=== PATIENT | male | born 1960 | race African-American/Black ===

== ENCOUNTER 2016-07-04 20:07 | Emergency (ER) | payer OTHER ==
[~2016-07-04] VITALS: Ht 182.9 cm; Wt 81.6 kg
[2016-07-05 05:34] VITALS: BP 115/78
== END 2016-07-05 05:35 | disposition home or self-care (01) ==
LOC: ER 20:13
DX: S00.83XA Contusion of other part of head, initial encounter (principal); F10.129 Alcohol abuse with intoxication, unspecified; X58.XXXA Exposure to other specified factors, initial encounter; Y93.89 Activity, other specified; Y92.89 Other specified places as the place of occurrence of the external cause; Y99.8 Other external cause status
CPT/HCPCS: 70450; 72125; 82962; 99284; A4606; L0172; Z7610

== ENCOUNTER 2016-07-21 22:47 | Emergency (ER) | payer OTHER ==
[~2016-07-21] VITALS: Ht 182.9 cm; Wt 81.6 kg
[2016-07-22 02:00] VITALS: BP 127/86
== END 2016-07-22 03:58 | disposition home or self-care (01) ==
LOC: ER 22:48
DX: M25.511 Pain in right shoulder (principal); G80.9 Cerebral palsy, unspecified
CPT/HCPCS: 73010-TC; A4606; Z7610

== ENCOUNTER 2016-08-13 15:21 | Emergency (ER) | payer OTHER ==
[~2016-08-13] VITALS: Ht 188 cm; Wt 90.7 kg
[2016-08-13] MEDS ORDERED: ACETAMINOPHEN ES 500 MG TABLET PO ONE (16:00)
[2016-08-13] MEDS ORDERED: ACETAMINOPHEN ES 500 MG TABLET ONE (16:05)
[2016-08-13 16:19] VITALS: BP 126/71
== END 2016-08-13 17:31 | disposition home or self-care (01) ==
LOC: ER 15:22
DX: J06.9 Acute upper respiratory infection, unspecified (principal); G80.9 Cerebral palsy, unspecified
CPT/HCPCS: 71010; 99283; A4606; Z7610

== ENCOUNTER 2016-10-11 13:57 | Emergency (ER) | payer OTHER ==
[~2016-10-11] VITALS: Ht 182.9 cm; Wt 63.5 kg
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
[2016-10-11] MEDS ORDERED: HYDROCODONE/APAP 5/325MG 1 EACH TABLET ONE (14:36)
[2016-10-11] MEDS ORDERED: ONDANSETRON 4 MG TAB.RAPDIS ONE (14:36)
--- NOTE | 2016-10-11 14:42 | NUR ---
PT TRANSPORTED TO RADIOLOGY IN STABLE CONDITION
[2016-10-11] MEDS ORDERED: HYDROCODONE/APAP 5/325MG 1 EACH TABLET PO ONE (15:00)
[2016-10-11] MEDS ORDERED: ONDANSETRON 4 MG TAB.RAPDIS PO ONE (15:00)
--- NOTE | 2016-10-11 16:15 | NUR ---
Patient discharged to home in stable condition. Written and verbal after care instructions given. Patient verbalizes understanding of instruction. AMBULATORY WITH WALKER; ASSISTED BY WHEELCHAIR TO CAR PER PT REQUEST.
[2016-10-11 16:16] VITALS: BP 132/75
== END 2016-10-11 16:17 | disposition home or self-care (01) ==
LOC: EDUNIT# 13:57 → ER 13:59
DX: M79.1 Myalgia (principal); I10 Essential (primary) hypertension; F17.200 Nicotine dependence, unspecified, uncomplicated; Z86.73 Personal history of transient ischemic attack (TIA), and cerebral infarction without residual deficits; Z98.890 Other specified postprocedural states
CPT/HCPCS: 72074-TC; 72100-TC; 72125-TC; 73030-TC; 73060-TC; 73550-TC; A4606; Q0162; Z7610

== ENCOUNTER 2016-10-22 16:10 | Emergency (ER) | payer OTHER ==
[~2016-10-22] VITALS: Ht 172.7 cm; Wt 74.8 kg
[2016-10-22 16:12] VITALS: BP 143/82
== END 2016-10-22 18:57 | disposition home or self-care (01) ==
LOC: ER 16:11
DX: F10.129 Alcohol abuse with intoxication, unspecified (principal); F19.10 Other psychoactive substance abuse, uncomplicated; G80.9 Cerebral palsy, unspecified; I10 Essential (primary) hypertension
CPT/HCPCS: A4606; Z7610

== ENCOUNTER 2017-12-23 04:33 | Emergency (ER) | payer OTHER ==
[~2017-12-23] VITALS: Ht 170.2 cm; Wt 65.8 kg
[2017-12-23 04:35] VITALS: BP 163/93
[2017-12-23] MEDS ORDERED: IBUPROFEN 600 MG TABLET PO ONE ×2 (04:59→05:00)
== END 2017-12-23 05:14 | disposition home or self-care (01) ==
LOC: ER 04:35
DX: M79.671 Pain in right foot (principal); M79.672 Pain in left foot; G80.9 Cerebral palsy, unspecified; I10 Essential (primary) hypertension; Z98.890 Other specified postprocedural states; F17.200 Nicotine dependence, unspecified, uncomplicated; F10.10 Alcohol abuse, uncomplicated; Y90.9 Presence of alcohol in blood, level not specified
CPT/HCPCS: 99282; A4606; Z7610

== ENCOUNTER → 2018-02-18 | Emergency (ER) | payer OTHER ==
[~2018-02-18] VITALS: Ht 182.9 cm; Wt 65.3 kg
[~2018-02-18] MED LIST: oxyCODONE/APAP (5/325 MG) 1 UDTAB TABLET ONE; oxyCODONE/APAP (5/325 MG) 1 UDTAB TABLET PO ONE
[2018-02-18 17:20] VITALS: BP 103/61
--- NOTE | 2018-02-18 21:38 | NUR ---
PT NEEDS A VOLAR SPLINT
== END | disposition home or self-care (01) ==
LOC: ER 17:21
DX: S62.305A Unspecified fracture of fourth metacarpal bone, left hand, initial encounter for closed fracture (principal); I10 Essential (primary) hypertension; G80.9 Cerebral palsy, unspecified; R53.1 Weakness; F10.10 Alcohol abuse, uncomplicated; F17.200 Nicotine dependence, unspecified, uncomplicated; Y90.9 Presence of alcohol in blood, level not specified; Z98.890 Other specified postprocedural states; Z59.0 Homelessness; Y04.0XXA Assault by unarmed brawl or fight, initial encounter; Y93.89 Activity, other specified; Y92.89 Other specified places as the place of occurrence of the external cause; Y99.8 Other external cause status
CPT/HCPCS: 29125; 72110; 72220; 73130; 99284; 99406; A4606; Z7610

== ENCOUNTER 2018-08-20 21:24 | Emergency (ER) | payer OTHER ==
--- NOTE | 2018-08-20 21:30 | NUR ---
CALLED, NO ANSWER IN WR.
--- NOTE | 2018-08-20 22:41 | NUR ---
CALLED IN [facility], NO ANSWER.
--- NOTE | 2018-08-20 23:22 | NUR ---
CALLED IN [facility], NO ANSWER.
== END 2018-08-21 05:54 | disposition left against medical advice (07) ==
LOC: ER 21:25
DX: Z53.21 Procedure and treatment not carried out due to patient leaving prior to being seen by health care provider (principal)

== ENCOUNTER 2018-08-21 06:04 | Emergency (ER) | payer OTHER ==
[~2018-08-21] VITALS: Ht 167.6 cm; Wt 77.1 kg
[2018-08-21 06:04] VITALS: BP 129/81
[2018-08-21] MEDS ORDERED: IBUPROFEN 600 MG TABLET PO ONE ×2 (06:30→06:35)
== END 2018-08-21 06:53 | disposition home or self-care (01) ==
LOC: ER 06:07
DX: M54.5 Low back pain (principal); I10 Essential (primary) hypertension; F17.200 Nicotine dependence, unspecified, uncomplicated; Z59.0 Homelessness; Z98.890 Other specified postprocedural states; Y04.0XXA Assault by unarmed brawl or fight, initial encounter; Y93.89 Activity, other specified; Y92.89 Other specified places as the place of occurrence of the external cause; Y99.8 Other external cause status

== ENCOUNTER 2022-04-20 22:50 | Emergency (ER) | payer OTHER ==
[~2022-04-20] VITALS: Ht 175.3 cm; Wt 63.5 kg
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
--- NOTE | 2022-04-20 23:26 | NUR ---
XRAY AT BEDSIDE
[2022-04-20] MEDS ORDERED: HYDROCODONE/APAP 5/325MG TABLET ONE (23:27)
[2022-04-20] MEDS ORDERED: HYDROCODONE/APAP 5/325MG TABLET PO ONE (23:30)
[2022-04-21] MEDS ORDERED: IBUP-1953 PO (00:17)
[2022-04-21] MEDS ORDERED: HYDR-3972 PO (00:17)
[2022-04-21 00:32] VITALS: BP 128/78
--- NOTE | 2022-04-21 00:32 | NUR ---
Patient discharged to home in stable condition. Written and verbal after care instructions given. Patient verbalizes understanding of instruction.
== END 2022-04-21 00:33 | disposition home or self-care (01) ==
LOC: ER 22:56
DX: S22.41XA Multiple fractures of ribs, right side, initial encounter for closed fracture (principal); S50.02XA Contusion of left elbow, initial encounter; I10 Essential (primary) hypertension; F17.200 Nicotine dependence, unspecified, uncomplicated; Z59.00 Homelessness unspecified; W18.30XA Fall on same level, unspecified, initial encounter; Y93.89 Activity, other specified; Y92.89 Other specified places as the place of occurrence of the external cause; Y99.8 Other external cause status
CPT/HCPCS: 71100-TC; 73080-TC; 73552

== ENCOUNTER 2023-09-06 23:43 | Inpatient (IN) | payer MEDICARE, OTHER ==
[~2023-09-06] VITALS: Ht 172.7 cm; Wt 70.3 kg
[~2023-09-06 23:43] MED LIST changes: +HYDR-3972 PO; +IBUP-1953 PO; -oxyCODONE/APAP (5/325 MG) 1 UDTAB TABLET ONE; -oxyCODONE/APAP (5/325 MG) 1 UDTAB TABLET PO ONE
[2023-09-07] VITALS (8 sets, daily range): BP systolic 91–102; BP diastolic 69–83; TEMP 97.9–98.6; O2SAT 96–100
[2023-09-07] MEDS: ASPIRIN 325 MG TABLET PO ONE (01:12)
[2023-09-07 01:21] LABS: BASOPHILS # (AUTO) 0.1 K/uL (0.0-0.2); EOSINOPHILS # (AUTO) 0.1 K/uL (0.0-0.7); EOSINOPHILS % (AUTO) 1.2 % (0.0-6.0); HEMATOCRIT 36 % (39-51); HEMOGLOBIN 11.2 g/dL (13.5-17.5); LYMPHOCYTES # (AUTO) 1.5 K/uL (0.8-4.8); MEAN CORPUSCULAR HEMOGLOBIN 25 PG (26.0-33.0); MEAN CORPUSCULAR HGB CONC 31 g/dl (31.0-36.0); MEAN CORPUSCULAR VOLUME 81 fL (80-96); MONOCYTES # (AUTO) 1.1 K/uL (0.1-1.30); MONOCYTES % (AUTO) 10.9 % (2.0-12.0); NEUTROPHILS # (AUTO) 6.8 K/uL (1.8-8.9); NEUTROPHILS % (AUTO) 70.9 % (43.0-81.0); PLATELET COUNT (AUTO) 301 K/uL (150-450); RED BLOOD CELL COUNT(AUTO) 4.48 MIL/uL (4.5-6.0); RED CELL DISTRIBUTION WIDTH 17.5 % (11.5-15.0); WHITE BLOOD COUNT (AUTO) 9.7 K/uL (4.3-11.0)
[2023-09-07 01:33] LABS: CALCIUM, SERUM 9.1 mg/dL (8.5-10.1); CARBON DIOXIDE 24 mmol/L (21-32); CHLORIDE 95 mmol/L (98-107); CREATININE 0.8 mg/dL (0.6-1.3); GLUCOSE 101 mg/dL (74-106); POTASSIUM 5.9 mmol/L (3.5-5.1); SODIUM SERUM 129 mmol/L (136-145); UREA NITROGEN, BLOOD 19 mg/dL (7-18)
[2023-09-07 01:42] LABS: ALANINE AMINOTRANSFERASE 33 U/L (12-78); ALBUMIN 2.6 g/dL (3.4-5.0); ALKALINE PHOSPHATASE 266 U/L (46-116); ASPARTATE AMINOTRANSFERASE 30 U/L (15-37); BILIRUBIN,DIRECT 0.8 mg/dL (0.0-0.2); BILIRUBIN,TOTAL 1.3 mg/dL (0.2-1.0); NT-PRO BNP 10586 pg/mL (0-125); TOTAL PROTEIN, SERUM 7.1 g/dL (6.4-8.2)
[2023-09-07] MEDS ORDERED: NITROGLYCERIN 0.4 MG/TAB BOTTLE SL PRN (02:00)
[2023-09-07] MEDS ORDERED: Z GUARD REMEDY 4 OZ OINT TP PRN (02:00)
[2023-09-07] MEDS ORDERED: FUROSEMIDE 20 MG/2 ML VIAL ONE (02:43)
[2023-09-07] MEDS ORDERED: SODIUM POLYSTYRENE SULFONATE 15 G/60 ML BOTTLE ONE (02:43)
[2023-09-07] MEDS ORDERED: SODIUM BICARBONATE SYR 50 MEQ/50 ML DISP.SYRIN ONE (02:45)
[2023-09-07] MEDS: FUROSEMIDE 20 MG/2 ML VIAL IV SCH (02:50)
[2023-09-07] MEDS: SODIUM POLYSTYRENE SULFONATE 15 G/60 ML BOTTLE PO ONE (02:50)
[2023-09-07] MEDS ORDERED: MORPHINE SULFATE INJ 2 MG/ML DISP.SYRIN ONE (03:03)
[2023-09-07] MEDS: MORPHINE SULFATE INJ 2 MG/ML DISP.SYRIN IV PRN ×2 (03:04→08:19)
[2023-09-07] MEDS: SODIUM BICARBONATE SYR 50 MEQ/50 ML DISP.SYRIN IV ONE (03:08)
[2023-09-07] MEDS: ALBUTEROL FS 2.5 MG/3 ML VIAL.NEB NEB ONE (03:11)
[2023-09-07] MEDS ORDERED: ALBUTEROL FS 2.5 MG/3 ML VIAL.NEB ONE (03:16)
[2023-09-07] MEDS: ENOXAPARIN SODIUM 60 MG/0.6 ML DISP.SYRIN SQ SCH (04:29)
[2023-09-07 07:30] LABS: ALBUMIN 2.3 g/dL (3.4-5.0); BILIRUBIN,TOTAL 1.4 mg/dL (0.2-1.0); CALCIUM, SERUM 8.7 mg/dL (8.5-10.1); CREATININE 0.7 mg/dL (0.6-1.3); MAGNESIUM 1.7 mg/dL (1.8-2.4); POTASSIUM 5.2 mmol/L (3.5-5.1); TOTAL PROTEIN, SERUM 6.3 g/dL (6.4-8.2)
[2023-09-07] MEDS: ASPIRIN 81 MG TAB.CHEW PO SCH (08:18)
[2023-09-07] MEDS: PANTOPRAZOLE 40 MG VIAL IV SCH (08:18)
[2023-09-07] MEDS ORDERED: APIX5TAB PO (08:29)
[2023-09-07] MEDS ORDERED: AMIN30LI66 PO (08:29)
[2023-09-07] MEDS ORDERED: HYDR-4209 PO (08:29)
[2023-09-07] MEDS ORDERED: TEMA15CA5 PO (08:29)
[2023-09-07] MEDS ORDERED: NA P133E RC (08:29)
[2023-09-07] MEDS ORDERED: FURO-145 PO (08:29)
[2023-09-07] MEDS ORDERED: BISA10SU11 RC (08:29)
[2023-09-07] MEDS ORDERED: MAGN400O6 PO (08:29)
[2023-09-07] MEDS ORDERED: ACET-868 PO ×2 (08:29)
[2023-09-07] MEDS ORDERED: PANT40TA2 PO (08:29)
[2023-09-07] MEDS ORDERED: CHOL100043 PO (08:29)
[2023-09-07] MEDS ORDERED: POVI3780 TP (08:29)
[2023-09-07] MEDS ORDERED: LOSA25TA27 PO (08:29)
[2023-09-07] MEDS ORDERED: MULT-213 PO (08:29)
[2023-09-07] MEDS ORDERED: SPIR25TA6 PO (08:29)
[2023-09-07] MEDS ORDERED: ASCO-340 PO (08:29)
[2023-09-07] MEDS ORDERED: SILV20CR13 TP (08:29)
[2023-09-07] MEDS ORDERED: APIXABAN 5 MG TABLET PO SCH (09:00)
[2023-09-07] MEDS ORDERED: FUROSEMIDE 40 MG/4 ML VIAL IV SCH (09:00)
[2023-09-07] MEDS: PANTOPRAZOLE 40 MG TABLET.DR PO SCH (09:45)
[2023-09-07] MEDS: LOSARTAN POTASSIUM 25 MG TABLET PO SCH (09:46)
[2023-09-07] MEDS: SPIRONOLACTONE 25 MG TABLET PO SCH (09:46)
[2023-09-07] MEDS: FUROSEMIDE 100 MG/10 ML VIAL IV SCH (09:49)
[2023-09-07] MEDS ORDERED: CT SWABBABLE VALVE TRANS SET 1 EA INFUS.SET MC ONE ×2 (10:30→10:33)
[2023-09-07] MEDS ORDERED: IOHEXOL-350 100 ML VIAL IV ONE ×2 (10:30→10:32)
[2023-09-07] MEDS ORDERED: IV NS 0.9% 250 ML IV ONE ×2 (10:31→10:32)
[2023-09-07] MEDS: MAGNESIUM OXIDE 400 MG TABLET PO ONE (11:46)
[2023-09-07] MEDS: CHLORHEXIDINE GLUCONATE 4% 118 ML BOTTLE TP SCH (14:22)
[2023-09-07] MEDS: NEOMY SULF/BACITRAC ZN/POLY 15 GM TUBE TP SCH (17:10)
[2023-09-07] MEDS: TEMAZEPAM 15 MG CAPSULE PO PRN (21:39)
[2023-09-08] VITALS: BP 99/73; TEMP 97.3; O2SAT 96
[2023-09-08 06:45] LABS: BASOPHILS % (AUTO) 0.6 % (0.0-2.0); EOSINOPHILS # (AUTO) 0.3 K/uL (0.0-0.7); EOSINOPHILS % (AUTO) 3.3 % (0.0-6.0); HEMATOCRIT 33 % (39-51); HEMOGLOBIN 10.5 g/dL (13.5-17.5); LYMPHOCYTES # (AUTO) 1.5 K/uL (0.8-4.8); LYMPHOCYTES % (AUTO) 18.8 % (20.0-44.0); MEAN CORPUSCULAR HEMOGLOBIN 25 PG (26.0-33.0); MEAN CORPUSCULAR HGB CONC 32 g/dl (31.0-36.0); MEAN CORPUSCULAR VOLUME 79 fL (80-96); MONOCYTES # (AUTO) 1.2 K/uL (0.1-1.30); MONOCYTES % (AUTO) 15.2 % (2.0-12.0); NEUTROPHILS # (AUTO) 4.8 K/uL (1.8-8.9); NEUTROPHILS % (AUTO) 62.1 % (43.0-81.0); PLATELET COUNT (AUTO) 272 K/uL (150-450); RED BLOOD CELL COUNT(AUTO) 4.16 MIL/uL (4.5-6.0); RED CELL DISTRIBUTION WIDTH 17.7 % (11.5-15.0); WHITE BLOOD COUNT (AUTO) 7.7 K/uL (4.3-11.0)
[2023-09-08 07:14] LABS: CALCIUM, SERUM 8.3 mg/dL (8.5-10.1); CREATININE 0.7 mg/dL (0.6-1.3); MAGNESIUM 1.5 mg/dL (1.8-2.4); PHOSPHORUS 4.2 mg/dL (2.5-4.9); POTASSIUM 3.6 mmol/L (3.5-5.1); TOTAL PROTEIN, SERUM 5.9 g/dL (6.4-8.2)
[2023-09-08 07:33] LABS: THYROID STIMULATING HORMONE 2.651 uIU/mL (0.358-3.74); URIC ACID 5.4 mg/dL (2.6-7.2)
[2023-09-08 07:36] LABS: URINE SODIUM, RANDOM 80 mmol/l (40-220)
[2023-09-08 08:00] VITALS: BP 99/79; TEMP 98.4; O2SAT 100
[2023-09-08] MEDS: CARVEDILOL 6.25 MG TABLET PO SCH (09:00)
[2023-09-08 09:18] LABS: ABG BASE EXCESS 6.1 mmol/L; ABG OXYGEN SATURATION 93.8 % (92.0-98.5); ABG PCO2 43.2 mmHg (35.0-45.0); ABG PH 7.466 (7.350-7.450); ABG PO2 67.5 mmHg (75.0-100.0); ABG TOTAL HEMOGLOBIN 11.9 G/dL (13.5-18.0); AaDO2 30.5 mmHg; COHb 1.5 % (0.5-1.5); MetHb 0.3 % (0.0-1.5); O2Hb 92.1 % (94.0-97.0); SITE, ABG Left Radial; VENT MODE, BG ROOM AIR
[2023-09-08] MEDS: MAGNESIUM OXIDE 400 MG TABLET PO ONE (10:06)
[2023-09-08] MEDS: ENOXAPARIN SODIUM 100 MG/ML DISP.SYRIN SQ SCH (10:08)
[2023-09-08] MEDS ORDERED: DOBUTamine 250 MG in IV D5W 230 ML IV PRN (11:00)
[2023-09-08 12:00] VITALS: BP 100/75; TEMP 97.6; O2SAT 97
[2023-09-08] MEDS: ACETAMINOPHEN 325 MG TABLET PO PRN (12:34)
[2023-09-08] MEDS: DOBUTamine 500 MG in IV D5W 210 ML IV PRN ×2 (13:45→14:59)
[2023-09-08 16:00] VITALS: BP 96/66; TEMP 97.6; O2SAT 95
[2023-09-08] MEDS: CYCLOBENZAPRINE 10 MG TABLET PO PRN (17:25)
[2023-09-08 17:58] LABS: OSMOLALITY,URINE 406 mOS/kg (340-1090)
[2023-09-08 20:00] VITALS: BP 90/65; TEMP 98; O2SAT 95
[2023-09-08] MEDS: MORPHINE SULFATE INJ 2 MG/ML DISP.SYRIN IV PRN (23:50)
[2023-09-09] VITALS (7 sets, daily range): BP systolic 89–108; BP diastolic 66–83; TEMP 97.5–98.4; O2SAT 98–100
[2023-09-09 06:45] LABS: BASOPHILS % (AUTO) 0.7 % (0.0-2.0); EOSINOPHILS # (AUTO) 0.2 K/uL (0.0-0.7); EOSINOPHILS % (AUTO) 2.7 % (0.0-6.0); HEMATOCRIT 30 % (39-51); HEMOGLOBIN 9.7 g/dL (13.5-17.5); LYMPHOCYTES # (AUTO) 1.3 K/uL (0.8-4.8); LYMPHOCYTES % (AUTO) 19.2 % (20.0-44.0); MEAN CORPUSCULAR HEMOGLOBIN 26 PG (26.0-33.0); MEAN CORPUSCULAR HGB CONC 32 g/dl (31.0-36.0); MEAN CORPUSCULAR VOLUME 79 fL (80-96); MONOCYTES % (AUTO) 15.1 % (2.0-12.0); NEUTROPHILS # (AUTO) 4.2 K/uL (1.8-8.9); NEUTROPHILS % (AUTO) 62.3 % (43.0-81.0); PLATELET COUNT (AUTO) 253 K/uL (150-450); RED BLOOD CELL COUNT(AUTO) 3.79 MIL/uL (4.5-6.0); RED CELL DISTRIBUTION WIDTH 17.5 % (11.5-15.0); WHITE BLOOD COUNT (AUTO) 6.7 K/uL (4.3-11.0)
[2023-09-09 07:30] LABS: ALBUMIN 1.9 g/dL (3.4-5.0); BILIRUBIN,TOTAL 0.8 mg/dL (0.2-1.0); CALCIUM, SERUM 8.3 mg/dL (8.5-10.1); CREATININE 0.6 mg/dL (0.6-1.3); MAGNESIUM 1.6 mg/dL (1.8-2.4); PHOSPHORUS 3.6 mg/dL (2.5-4.9); POTASSIUM 4.3 mmol/L (3.5-5.1); TOTAL PROTEIN, SERUM 5.8 g/dL (6.4-8.2)
[2023-09-09] MEDS: FUROSEMIDE 40 MG/4 ML VIAL IV SCH (09:40)
[2023-09-09] MEDS: Magnesium 1GM/D5W 100ML PREMIX 100 ML IV SCH (09:40)
[2023-09-09] MEDS: MINERAL OIL/PETROLATUM,WHITE 120 GM JAR TP PRN (14:59)
[2023-09-10] VITALS (8 sets, daily range): BP systolic 97–123; BP diastolic 65–89; TEMP 96.7–98.8; O2SAT 97–98
[2023-09-10 06:31] LABS: BASOPHILS % (AUTO) 0.5 % (0.0-2.0); EOSINOPHILS # (AUTO) 0.2 K/uL (0.0-0.7); EOSINOPHILS % (AUTO) 2.7 % (0.0-6.0); HEMATOCRIT 31 % (39-51); HEMOGLOBIN 9.7 g/dL (13.5-17.5); LYMPHOCYTES # (AUTO) 1.1 K/uL (0.8-4.8); LYMPHOCYTES % (AUTO) 15.7 % (20.0-44.0); MEAN CORPUSCULAR HEMOGLOBIN 25 PG (26.0-33.0); MEAN CORPUSCULAR HGB CONC 32 g/dl (31.0-36.0); MEAN CORPUSCULAR VOLUME 79 fL (80-96); MONOCYTES % (AUTO) 14.8 % (2.0-12.0); NEUTROPHILS # (AUTO) 4.5 K/uL (1.8-8.9); NEUTROPHILS % (AUTO) 66.3 % (43.0-81.0); PLATELET COUNT (AUTO) 261 K/uL (150-450); RED BLOOD CELL COUNT(AUTO) 3.88 MIL/uL (4.5-6.0); RED CELL DISTRIBUTION WIDTH 17.5 % (11.5-15.0); WHITE BLOOD COUNT (AUTO) 6.8 K/uL (4.3-11.0)
[2023-09-10 06:48] LABS: BILIRUBIN,TOTAL 0.8 mg/dL (0.2-1.0); CALCIUM, SERUM 8.5 mg/dL (8.5-10.1); CREATININE 0.7 mg/dL (0.6-1.3); MAGNESIUM 1.9 mg/dL (1.8-2.4); PHOSPHORUS 3.5 mg/dL (2.5-4.9); POTASSIUM 4.6 mmol/L (3.5-5.1)
[2023-09-10] MEDS: FUROSEMIDE 40 MG/4 ML VIAL IV SCH (08:22)
[2023-09-11] VITALS (7 sets, daily range): BP systolic 90–103; BP diastolic 69–79; TEMP 97.5–98; O2SAT 98–100
[2023-09-11 08:31] LABS: BASOPHILS % (AUTO) 0.6 % (0.0-2.0); EOSINOPHILS # (AUTO) 0.3 K/uL (0.0-0.7); EOSINOPHILS % (AUTO) 5.2 % (0.0-6.0); HEMATOCRIT 32 % (39-51); LYMPHOCYTES # (AUTO) 1.1 K/uL (0.8-4.8); LYMPHOCYTES % (AUTO) 19.1 % (20.0-44.0); MEAN CORPUSCULAR HEMOGLOBIN 25 PG (26.0-33.0); MEAN CORPUSCULAR HGB CONC 32 g/dl (31.0-36.0); MEAN CORPUSCULAR VOLUME 79 fL (80-96); MONOCYTES # (AUTO) 0.9 K/uL (0.1-1.30); MONOCYTES % (AUTO) 15.4 % (2.0-12.0); NEUTROPHILS # (AUTO) 3.4 K/uL (1.8-8.9); NEUTROPHILS % (AUTO) 59.7 % (43.0-81.0); PLATELET COUNT (AUTO) 236 K/uL (150-450); RED BLOOD CELL COUNT(AUTO) 4.01 MIL/uL (4.5-6.0); RED CELL DISTRIBUTION WIDTH 17.7 % (11.5-15.0); WHITE BLOOD COUNT (AUTO) 5.7 K/uL (4.3-11.0)
[2023-09-11 08:44] LABS: BILIRUBIN,TOTAL 0.7 mg/dL (0.2-1.0); CALCIUM, SERUM 8.5 mg/dL (8.5-10.1); CREATININE 0.7 mg/dL (0.6-1.3); MAGNESIUM 1.9 mg/dL (1.8-2.4); PHOSPHORUS 4.1 mg/dL (2.5-4.9); POTASSIUM 4.4 mmol/L (3.5-5.1); TOTAL PROTEIN, SERUM 6.1 g/dL (6.4-8.2)
[2023-09-11] MEDS: LIDOCAINE 5% (PATCH) 1 EA PATCH TP SCH (11:02)
[2023-09-11] MEDS: DOBUTamine 500 MG in IV D5W 210 ML IV PRN (15:12)
[2023-09-11] MEDS: ZOLPIDEM TARTRATE 5 MG TABLET PO PRN (22:10)
[2023-09-12] VITALS (8 sets, daily range): BP systolic 95–107; BP diastolic 75–85; TEMP 97.7–98.6; O2SAT 98–100
[2023-09-12 13:21] LABS: INR 1.22 (0.91-1.10); PROTHROMBIN TIME 12.8 SECS (9.2-11.1)
[2023-09-12] MEDS: LIDOCAINE 5% OINT 35.44 GM TUBE TP PRN (17:54)
[2023-09-13] VITALS (8 sets, daily range): BP systolic 93–107; BP diastolic 78–84; TEMP 97.5–98.3; O2SAT 98–100
[2023-09-13 09:52] LABS: BASOPHILS # (AUTO) 0.1 K/uL (0.0-0.2); BASOPHILS % (AUTO) 1.2 % (0.0-2.0); EOSINOPHILS # (AUTO) 0.1 K/uL (0.0-0.7); EOSINOPHILS % (AUTO) 1.4 % (0.0-6.0); HEMATOCRIT 37 % (39-51); HEMOGLOBIN 11.5 g/dL (13.5-17.5); LYMPHOCYTES % (AUTO) 19.6 % (20.0-44.0); MEAN CORPUSCULAR HEMOGLOBIN 25 PG (26.0-33.0); MEAN CORPUSCULAR HGB CONC 31 g/dl (31.0-36.0); MEAN CORPUSCULAR VOLUME 79 fL (80-96); MONOCYTES # (AUTO) 1.3 K/uL (0.1-1.30); MONOCYTES % (AUTO) 12.5 % (2.0-12.0); NEUTROPHILS # (AUTO) 6.6 K/uL (1.8-8.9); NEUTROPHILS % (AUTO) 65.3 % (43.0-81.0); PLATELET COUNT (AUTO) 229 K/uL (150-450); RED BLOOD CELL COUNT(AUTO) 4.65 MIL/uL (4.5-6.0); WHITE BLOOD COUNT (AUTO) 10.1 K/uL (4.3-11.0)
[2023-09-13 10:33] LABS: CALCIUM, SERUM 9.1 mg/dL (8.5-10.1); CREATININE 0.9 mg/dL (0.6-1.3); MAGNESIUM 2.2 mg/dL (1.8-2.4); PHOSPHORUS 4.8 mg/dL (2.5-4.9); POTASSIUM 5.2 mmol/L (3.5-5.1)
[2023-09-14] VITALS (24 sets, daily range): BP systolic 87–117; BP diastolic 71–97; TEMP 96.4–98.6; O2SAT 94–100
[2023-09-14 08:49] LABS: ABG BASE EXCESS -2.1 mmol/L; ABG OXYGEN SATURATION 95.7 % (92.0-98.5); ABG PCO2 38.9 mmHg (35.0-45.0); ABG PH 7.383 (7.350-7.450); ABG PO2 92.8 mmHg (75.0-100.0); ABG TOTAL HEMOGLOBIN 12.9 G/dL (13.5-18.0); AaDO2 292.2 mmHg; MetHb 0.4 % (0.0-1.5); O2Hb 94.4 % (94.0-97.0); SITE, ABG Right Radial; VENT MODE, BG NRB AT 15L
[2023-09-14] MEDS: IPRATROPIUM NEB FS 0.5 MG/2.5 ML AMPUL.NEB NEB SCH (10:30)
[2023-09-14] MEDS: FUROSEMIDE 100 MG/10 ML VIAL IV SCH (10:50)
[2023-09-14 11:35] LABS: BASOPHILS % (AUTO) 0.3 % (0.0-2.0); EOSINOPHILS # (AUTO) 0.1 K/uL (0.0-0.7); EOSINOPHILS % (AUTO) 0.7 % (0.0-6.0); HEMATOCRIT 34 % (39-51); HEMOGLOBIN 10.6 g/dL (13.5-17.5); LYMPHOCYTES # (AUTO) 1.2 K/uL (0.8-4.8); LYMPHOCYTES % (AUTO) 12.6 % (20.0-44.0); MEAN CORPUSCULAR HEMOGLOBIN 25 PG (26.0-33.0); MEAN CORPUSCULAR HGB CONC 32 g/dl (31.0-36.0); MEAN CORPUSCULAR VOLUME 78 fL (80-96); MONOCYTES # (AUTO) 0.8 K/uL (0.1-1.30); MONOCYTES % (AUTO) 8.2 % (2.0-12.0); NEUTROPHILS # (AUTO) 7.7 K/uL (1.8-8.9); NEUTROPHILS % (AUTO) 78.2 % (43.0-81.0); PLATELET COUNT (AUTO) 205 K/uL (150-450); RED BLOOD CELL COUNT(AUTO) 4.27 MIL/uL (4.5-6.0); RED CELL DISTRIBUTION WIDTH 17.5 % (11.5-15.0); WHITE BLOOD COUNT (AUTO) 9.8 K/uL (4.3-11.0)
[2023-09-14 11:55] LABS: CALCIUM, SERUM 8.4 mg/dL (8.5-10.1); CREATININE 0.9 mg/dL (0.6-1.3); MAGNESIUM 1.9 mg/dL (1.8-2.4); PHOSPHORUS 4.6 mg/dL (2.5-4.9); POTASSIUM 4.7 mmol/L (3.5-5.1)
[2023-09-14] MEDS: ENOXAPARIN SODIUM 60 MG/0.6 ML DISP.SYRIN SQ SCH (17:30)
[2023-09-15] VITALS (27 sets, daily range): BP systolic 58–109; BP diastolic 18–93; TEMP 97.7–98.6; O2SAT 69–100
[2023-09-15 05:54] LABS: BASOPHILS # (AUTO) 0.2 K/uL (0.0-0.2); BASOPHILS % (AUTO) 2.1 % (0.0-2.0); EOSINOPHILS # (AUTO) 0.2 K/uL (0.0-0.7); EOSINOPHILS % (AUTO) 2.1 % (0.0-6.0); HEMATOCRIT 33 % (39-51); HEMOGLOBIN 10.5 g/dL (13.5-17.5); LYMPHOCYTES # (AUTO) 1.9 K/uL (0.8-4.8); LYMPHOCYTES % (AUTO) 21.2 % (20.0-44.0); MEAN CORPUSCULAR HEMOGLOBIN 25 PG (26.0-33.0); MEAN CORPUSCULAR HGB CONC 32 g/dl (31.0-36.0); MEAN CORPUSCULAR VOLUME 78 fL (80-96); MONOCYTES # (AUTO) 0.9 K/uL (0.1-1.30); MONOCYTES % (AUTO) 9.9 % (2.0-12.0); NEUTROPHILS # (AUTO) 5.7 K/uL (1.8-8.9); NEUTROPHILS % (AUTO) 64.7 % (43.0-81.0); PLATELET COUNT (AUTO) 181 K/uL (150-450); RED BLOOD CELL COUNT(AUTO) 4.26 MIL/uL (4.5-6.0); RED CELL DISTRIBUTION WIDTH 17.7 % (11.5-15.0); WHITE BLOOD COUNT (AUTO) 8.9 K/uL (4.3-11.0)
[2023-09-15 06:12] LABS: ALBUMIN 2.5 g/dL (3.4-5.0); BILIRUBIN,TOTAL 1.2 mg/dL (0.2-1.0); CALCIUM, SERUM 8.5 mg/dL (8.5-10.1); CREATININE 0.9 mg/dL (0.6-1.3); PHOSPHORUS 4.9 mg/dL (2.5-4.9); POTASSIUM 4.2 mmol/L (3.5-5.1); TOTAL PROTEIN, SERUM 6.4 g/dL (6.4-8.2)
[2023-09-15] MEDS: MAG HYDROX/AL HYDROX/SIMETH 30 ML UDC PO PRN (08:16)
[2023-09-15] MEDS: MAGNESIUM HYDROXIDE 30 ML UDC PO PRN (08:16)
[2023-09-15] MEDS: ONDANSETRON HCL/PF 4 MG/2 ML VIAL IVP PRN (08:18)
[2023-09-16] VITALS (27 sets, daily range): BP systolic 64–111; BP diastolic 36–87; TEMP 97–98.8; O2SAT 91–100
[2023-09-16 05:10] LABS: BASOPHILS # (AUTO) 0.1 K/uL (0.0-0.2); BASOPHILS % (AUTO) 0.9 % (0.0-2.0); EOSINOPHILS # (AUTO) 0.3 K/uL (0.0-0.7); EOSINOPHILS % (AUTO) 3.3 % (0.0-6.0); HEMATOCRIT 35 % (39-51); LYMPHOCYTES # (AUTO) 2.3 K/uL (0.8-4.8); LYMPHOCYTES % (AUTO) 23.6 % (20.0-44.0); MEAN CORPUSCULAR HEMOGLOBIN 25 PG (26.0-33.0); MEAN CORPUSCULAR HGB CONC 32 g/dl (31.0-36.0); MEAN CORPUSCULAR VOLUME 79 fL (80-96); MONOCYTES # (AUTO) 1.2 K/uL (0.1-1.30); MONOCYTES % (AUTO) 12.3 % (2.0-12.0); NEUTROPHILS # (AUTO) 5.9 K/uL (1.8-8.9); NEUTROPHILS % (AUTO) 59.9 % (43.0-81.0); PLATELET COUNT (AUTO) 171 K/uL (150-450); RED BLOOD CELL COUNT(AUTO) 4.42 MIL/uL (4.5-6.0); WHITE BLOOD COUNT (AUTO) 9.9 K/uL (4.3-11.0)
[2023-09-16 05:33] LABS: CALCIUM, SERUM 8.7 mg/dL (8.5-10.1); CREATININE 1.1 mg/dL (0.6-1.3); MAGNESIUM 2.3 mg/dL (1.8-2.4); PHOSPHORUS 4.6 mg/dL (2.5-4.9); POTASSIUM 4.6 mmol/L (3.5-5.1)
[2023-09-16] MEDS: HYDROCODONE/APAP 5/325MG TABLET PO PRN (13:48)
[2023-09-16] MEDS: APIXABAN 5 MG TABLET PO SCH (18:08)
[2023-09-16] MEDS ORDERED: CYCLOBENZAPRINE 10 MG TABLET ONE (22:27)
[2023-09-17] VITALS (12 sets, daily range): BP systolic 94–110; BP diastolic 60–89; TEMP 97.1–98.4; O2SAT 94–100
[2023-09-17 07:40] LABS: BASOPHILS # (AUTO) 0.1 K/uL (0.0-0.2); BASOPHILS % (AUTO) 0.6 % (0.0-2.0); EOSINOPHILS # (AUTO) 0.2 K/uL (0.0-0.7); EOSINOPHILS % (AUTO) 1.8 % (0.0-6.0); HEMATOCRIT 36 % (39-51); HEMOGLOBIN 11.1 g/dL (13.5-17.5); LYMPHOCYTES # (AUTO) 2.3 K/uL (0.8-4.8); LYMPHOCYTES % (AUTO) 23.2 % (20.0-44.0); MEAN CORPUSCULAR HEMOGLOBIN 25 PG (26.0-33.0); MEAN CORPUSCULAR HGB CONC 31 g/dl (31.0-36.0); MEAN CORPUSCULAR VOLUME 80 fL (80-96); MONOCYTES # (AUTO) 1.2 K/uL (0.1-1.30); MONOCYTES % (AUTO) 12.3 % (2.0-12.0); NEUTROPHILS # (AUTO) 6.3 K/uL (1.8-8.9); NEUTROPHILS % (AUTO) 62.1 % (43.0-81.0); PLATELET COUNT (AUTO) 176 K/uL (150-450); RED BLOOD CELL COUNT(AUTO) 4.44 MIL/uL (4.5-6.0); WHITE BLOOD COUNT (AUTO) 10.1 K/uL (4.3-11.0)
[2023-09-17 08:33] LABS: CALCIUM, SERUM 8.7 mg/dL (8.5-10.1); CREATININE 1.1 mg/dL (0.6-1.3); MAGNESIUM 2.4 mg/dL (1.8-2.4); PHOSPHORUS 4.3 mg/dL (2.5-4.9); POTASSIUM 5.1 mmol/L (3.5-5.1)
[2023-09-18] VITALS (12 sets, daily range): BP systolic 94–104; BP diastolic 78–87; TEMP 97.5–98.1; O2SAT 94–100
[2023-09-18] MEDS: TEMAZEPAM 15 MG CAPSULE PO PRN (00:57)
[2023-09-18] MEDS: CARVEDILOL 6.25 MG TABLET PO SCH (09:10)
[2023-09-18] MEDS: SPIRONOLACTONE 25 MG TABLET PO SCH (09:11)
[2023-09-18] MEDS: FUROSEMIDE 40 MG TABLET PO SCH (09:11)
[2023-09-18] MEDS ORDERED: LORAZEPAM 1 MG TABLET PO PRN (12:00)
[2023-09-18 13:24] LABS: CALCIUM, SERUM 8.7 mg/dL (8.5-10.1); CREATININE 1.3 mg/dL (0.6-1.3); MAGNESIUM 2.5 mg/dL (1.8-2.4); PHOSPHORUS 5.2 mg/dL (2.5-4.9); POTASSIUM 5.6 mmol/L (3.5-5.1)
[2023-09-18] MEDS: SODIUM POLYSTYRENE SULF. PWD 15 GM UDC PO ONE (19:38)
[2023-09-18 22:43] LABS: BASOPHILS # (AUTO) 0.1 K/uL (0.0-0.2); BASOPHILS % (AUTO) 0.7 % (0.0-2.0); EOSINOPHILS # (AUTO) 0.2 K/uL (0.0-0.7); EOSINOPHILS % (AUTO) 2.7 % (0.0-6.0); HEMATOCRIT 34 % (39-51); HEMOGLOBIN 10.6 g/dL (13.5-17.5); LYMPHOCYTES # (AUTO) 1.7 K/uL (0.8-4.8); LYMPHOCYTES % (AUTO) 21.2 % (20.0-44.0); MEAN CORPUSCULAR HEMOGLOBIN 25 PG (26.0-33.0); MEAN CORPUSCULAR HGB CONC 31 g/dl (31.0-36.0); MEAN CORPUSCULAR VOLUME 79 fL (80-96); MONOCYTES # (AUTO) 0.8 K/uL (0.1-1.30); MONOCYTES % (AUTO) 9.7 % (2.0-12.0); NEUTROPHILS # (AUTO) 5.4 K/uL (1.8-8.9); NEUTROPHILS % (AUTO) 65.7 % (43.0-81.0); PLATELET COUNT (AUTO) 176 K/uL (150-450); RED BLOOD CELL COUNT(AUTO) 4.31 MIL/uL (4.5-6.0); RED CELL DISTRIBUTION WIDTH 18.4 % (11.5-15.0); WHITE BLOOD COUNT (AUTO) 8.2 K/uL (4.3-11.0)
[2023-09-19] VITALS (12 sets, daily range): BP systolic 92–111; BP diastolic 77–90; TEMP 97–98.8; O2SAT 94–100
[2023-09-19 06:29] LABS: EOSINOPHILS # (AUTO) 0.8 K/uL (0.0-0.7); EOSINOPHILS % (AUTO) 9.5 % (0.0-6.0); HEMATOCRIT 34 % (39-51); HEMOGLOBIN 10.7 g/dL (13.5-17.5); LYMPHOCYTES # (AUTO) 0.5 K/uL (0.8-4.8); LYMPHOCYTES % (AUTO) 5.9 % (20.0-44.0); MEAN CORPUSCULAR HEMOGLOBIN 25 PG (26.0-33.0); MEAN CORPUSCULAR HGB CONC 31 g/dl (31.0-36.0); MEAN CORPUSCULAR VOLUME 79 fL (80-96); MONOCYTES # (AUTO) 0.1 K/uL (0.1-1.30); MONOCYTES % (AUTO) 1.6 % (2.0-12.0); PLATELET COUNT (AUTO) 173 K/uL (150-450); RED BLOOD CELL COUNT(AUTO) 4.35 MIL/uL (4.5-6.0); RED CELL DISTRIBUTION WIDTH 17.9 % (11.5-15.0); WHITE BLOOD COUNT (AUTO) 8.4 K/uL (4.3-11.0)
[2023-09-19 06:59] LABS: THYROID STIMULATING HORMONE 3.495 uIU/mL (0.358-3.74); URIC ACID 9.6 mg/dL (2.6-7.2)
[2023-09-19 07:07] LABS: CALCIUM, SERUM 8.6 mg/dL (8.5-10.1); CREATININE 1.3 mg/dL (0.6-1.3); MAGNESIUM 2.2 mg/dL (1.8-2.4); PHOSPHORUS 5.1 mg/dL (2.5-4.9); POTASSIUM 4.1 mmol/L (3.5-5.1)
[2023-09-19] MEDS: VITAMINS A AND D 56.7 GM TUBE TP SCH (10:05)
[2023-09-20] VITALS (15 sets, daily range): BP systolic 93–103; BP diastolic 79–88; TEMP 97.3–98.9; O2SAT 94–100
[2023-09-20 06:27] LABS: BASOPHILS % (AUTO) 0.4 % (0.0-2.0); EOSINOPHILS # (AUTO) 0.2 K/uL (0.0-0.7); EOSINOPHILS % (AUTO) 2.1 % (0.0-6.0); HEMATOCRIT 33 % (39-51); HEMOGLOBIN 10.2 g/dL (13.5-17.5); LYMPHOCYTES % (AUTO) 20.9 % (20.0-44.0); MEAN CORPUSCULAR HEMOGLOBIN 25 PG (26.0-33.0); MEAN CORPUSCULAR HGB CONC 31 g/dl (31.0-36.0); MEAN CORPUSCULAR VOLUME 79 fL (80-96); MONOCYTES # (AUTO) 1.3 K/uL (0.1-1.30); MONOCYTES % (AUTO) 13.9 % (2.0-12.0); NEUTROPHILS # (AUTO) 5.9 K/uL (1.8-8.9); NEUTROPHILS % (AUTO) 62.7 % (43.0-81.0); PLATELET COUNT (AUTO) 173 K/uL (150-450); RED BLOOD CELL COUNT(AUTO) 4.15 MIL/uL (4.5-6.0); RED CELL DISTRIBUTION WIDTH 17.8 % (11.5-15.0); WHITE BLOOD COUNT (AUTO) 9.4 K/uL (4.3-11.0)
[2023-09-20 06:55] LABS: CALCIUM, SERUM 8.2 mg/dL (8.5-10.1); MAGNESIUM 2.1 mg/dL (1.8-2.4); PHOSPHORUS 4.4 mg/dL (2.5-4.9); POTASSIUM 4.8 mmol/L (3.5-5.1)
[2023-09-21] VITALS (11 sets, daily range): BP systolic 91–112; BP diastolic 74–89; TEMP 97.3–98.2; O2SAT 95–100
[2023-09-21 06:16] LABS: ALBUMIN 2.5 g/dL (3.4-5.0); BILIRUBIN,TOTAL 1.3 mg/dL (0.2-1.0); CALCIUM, SERUM 8.5 mg/dL (8.5-10.1); MAGNESIUM 2.1 mg/dL (1.8-2.4); PHOSPHORUS 4.2 mg/dL (2.5-4.9); POTASSIUM 4.6 mmol/L (3.5-5.1); TOTAL PROTEIN, SERUM 6.5 g/dL (6.4-8.2)
[2023-09-21 06:22] LABS: BASOPHILS # (AUTO) 0.1 K/uL (0.0-0.2); BASOPHILS % (AUTO) 0.7 % (0.0-2.0); EOSINOPHILS # (AUTO) 0.2 K/uL (0.0-0.7); EOSINOPHILS % (AUTO) 2.2 % (0.0-6.0); HEMATOCRIT 35 % (39-51); HEMOGLOBIN 10.9 g/dL (13.5-17.5); LYMPHOCYTES # (AUTO) 2.3 K/uL (0.8-4.8); MEAN CORPUSCULAR HEMOGLOBIN 25 PG (26.0-33.0); MEAN CORPUSCULAR HGB CONC 32 g/dl (31.0-36.0); MEAN CORPUSCULAR VOLUME 79 fL (80-96); MONOCYTES % (AUTO) 10.6 % (2.0-12.0); NEUTROPHILS # (AUTO) 5.5 K/uL (1.8-8.9); NEUTROPHILS % (AUTO) 61.5 % (43.0-81.0); PLATELET COUNT (AUTO) 190 K/uL (150-450); RED BLOOD CELL COUNT(AUTO) 4.39 MIL/uL (4.5-6.0); RED CELL DISTRIBUTION WIDTH 18.4 % (11.5-15.0)
== END 2023-09-21 19:15 | DRG 280 ==
LOC: ER 23:47 → TELE 09-07 01:08 → TELE1 09-08 11:28 → TELE-TD 09-08 11:37 → ICU 09-14 09:01 → TELE1 09-16 18:55
PROVIDERS: ADMIT Internal Medicine
PROC: 05HF33Z Insertion of Infusion Device into Left Cephalic Vein, Percutaneous Approach (ICD-10-PCS; principal; 2023-09-10)
PROC: B54NZZA Ultrasonography of Left Upper Extremity Veins, Guidance (ICD-10-PCS; 2023-09-10)
PROC: 0W993ZZ Drainage of Right Pleural Cavity, Percutaneous Approach (ICD-10-PCS; 2023-09-15)
PROC: 0W993ZZ Drainage of Right Pleural Cavity, Percutaneous Approach (ICD-10-PCS; 2023-09-21)
DX: I13.0 Hypertensive heart and chronic kidney disease with heart failure and stage 1 through stage 4 chronic kidney disease, or unspecified chronic kidney disease (principal); I21.4 Non-ST elevation (NSTEMI) myocardial infarction; I50.43 Acute on chronic combined systolic (congestive) and diastolic (congestive) heart failure; D68.59 Other primary thrombophilia; E44.0 Moderate protein-calorie malnutrition; E87.1 Hypo-osmolality and hyponatremia; J98.11 Atelectasis; N17.9 Acute kidney failure, unspecified; J91.8 Pleural effusion in other conditions classified elsewhere; I42.9 Cardiomyopathy, unspecified; G80.9 Cerebral palsy, unspecified; D64.9 Anemia, unspecified; E66.01 Morbid (severe) obesity due to excess calories; E87.5 Hyperkalemia; E88.09 Other disorders of plasma-protein metabolism, not elsewhere classified; F17.210 Nicotine dependence, cigarettes, uncomplicated; F41.9 Anxiety disorder, unspecified; G89.4 Chronic pain syndrome; I73.9 Peripheral vascular disease, unspecified; F19.10 Other psychoactive substance abuse, uncomplicated; E86.0 Dehydration; I25.10 Atherosclerotic heart disease of native coronary artery without angina pectoris; N18.9 Chronic kidney disease, unspecified; Z79.01 Long term (current) use of anticoagulants; Z79.891 Long term (current) use of opiate analgesic; Z20.822 Contact with and (suspected) exposure to COVID-19; G72.9 Myopathy, unspecified; Z68.23 Body mass index [BMI] 23.0-23.9, adult; S90.112A Contusion of left great toe without damage to nail, initial encounter; X58.XXXA Exposure to other specified factors, initial encounter; Y93.9 Activity, unspecified; S80.11XA Contusion of right lower leg, initial encounter; L89.621 Pressure ulcer of left heel, stage 1; L97.519 Non-pressure chronic ulcer of other part of right foot with unspecified severity; Y92.129 Unspecified place in nursing home as the place of occurrence of the external cause; Z86.718 Personal history of other venous thrombosis and embolism
CPT/HCPCS: 36410; 36415; 36600; 71045-TC; 73030-TC; 76604-TC; 80048-TC; 80053-TC; 80061-TC; 80076-TC; 82803-TC; 82962-TC; 83735-TC; 83880; 83935-TC; 84100-TC; 84300-TC; 84443-TC; 84484-TC; 84550-TC; 85025-TC; 85610-TC; 87081-TC; 87102-TC; 93307-TC; 93970-TC; 94760-TC; 94761-TC; 94799-TC; 97112-TC; 97530-TC; A4223; A6253; A6403; C9113; G0378; J1250; J1650; J1940; J2270; J2405; J3475; J3490; J7050; J7060; Q9967